=== PATIENT | female | born 1995 | race Caucasian/White ===

== ENCOUNTER → 2019-10-05 14:40 | Outpatient (BNVA) | payer OTHER, SELFPAY | PROVIDERS: Family Provider Internal Medicine; Visit Provider Nurse Practitioner Women's Health | DX: Z01.89 Encounter for other specified special examinations (principal) | CPT/HCPCS: 84315 ==

== ENCOUNTER → 2019-10-19 13:27 | Outpatient (BNVA) | payer OTHER, SELFPAY | PROVIDERS: Family Provider Internal Medicine; Visit Provider Obstetrics & Gynecology | DX: Z34.80 Encounter for supervision of other normal pregnancy, unspecified trimester (principal) | CPT/HCPCS: 80053; 80307; 84315; 85027; 86592; 86762; 86803; 86850; 86900; 87340; 87806 ==

== ENCOUNTER → 2019-11-01 12:50 | Outpatient (BNVA) | payer OTHER, SELFPAY | PROVIDERS: Family Provider Internal Medicine; Visit Provider Obstetrics & Gynecology | DX: O09.299 Supervision of pregnancy with other poor reproductive or obstetric history, unspecified trimester (principal); Z86.79 Personal history of other diseases of the circulatory system | CPT/HCPCS: 84315; 87491; 87591 ==

== ENCOUNTER 2019-11-17 10:31 | Outpatient (CLI) | payer OTHER, SELFPAY ==
[2019-11-17 11:47] LABS: Total Protein 24 Hour Urine 95.3 mg/24HR (0-150); Total Volume, Urine 1025 mL; Urine Total Protein 24 Hour 9.3 mg/dL (0-150)
== END 2019-11-17 10:32 | disposition home or self-care (01) ==
LOC: LAB 10:33
PROVIDERS: Family Provider Internal Medicine; Visit Provider Obstetrics & Gynecology
DX: O09.299 Supervision of pregnancy with other poor reproductive or obstetric history, unspecified trimester (principal)
CPT/HCPCS: 84156

== ENCOUNTER → 2019-12-26 08:04 | Outpatient (BNVA) | payer OTHER, SELFPAY | PROVIDERS: Family Provider Internal Medicine; Visit Provider Obstetrics & Gynecology | DX: Z36.89 Encounter for other specified antenatal screening (principal) | CPT/HCPCS: 76805 ==

== ENCOUNTER → 2020-01-21 08:09 | Outpatient (BNVA) | payer OTHER, SELFPAY | PROVIDERS: Family Provider Internal Medicine; Visit Provider Obstetrics & Gynecology | DX: Z34.90 Encounter for supervision of normal pregnancy, unspecified, unspecified trimester (principal); B37.3 Candidiasis of vulva and vagina | CPT/HCPCS: 84315; 87210 ==

== ENCOUNTER → 2020-02-20 10:35 | Outpatient (BNVA) | payer OTHER, SELFPAY | PROVIDERS: Family Provider Internal Medicine; Visit Provider Nurse Practitioner Women's Health | DX: O26.899 Other specified pregnancy related conditions, unspecified trimester (principal); O26.893 Other specified pregnancy related conditions, third trimester; Z34.82 Encounter for supervision of other normal pregnancy, second trimester | CPT/HCPCS: 82950; 84315; 85027 ==

== ENCOUNTER 2020-03-06 09:00 | Outpatient (CLI) | payer OTHER, SELFPAY ==
[2020-03-06 09:20] VITALS: BP 115/62; PULSE 86; RESP 16
[2020-03-06 09:31] VITALS: BMI 27.8
[2020-03-06 09:47] VITALS: RESP 16; TEMP 37.1
[2020-03-06 09:51] LABS: Nitrazine Paper, PH Negative
== END 2020-03-06 09:50 | disposition home or self-care (01) ==
LOC: OPOB 09:12 → OBGYN 09:45
PROVIDERS: Family Provider Internal Medicine; Visit Provider Obstetrics & Gynecology
DX: O26.899 Other specified pregnancy related conditions, unspecified trimester (principal); Z3A.00 Weeks of gestation of pregnancy not specified; N89.8 Other specified noninflammatory disorders of vagina
CPT/HCPCS: 59025; 83986; 99211

== ENCOUNTER → 2020-03-07 12:57 | Outpatient (BNVA) | payer OTHER, SELFPAY | PROVIDERS: Family Provider Internal Medicine; Visit Provider Obstetrics & Gynecology | DX: O23.13 Infections of bladder in pregnancy, third trimester (principal); R82.90 Unspecified abnormal findings in urine | CPT/HCPCS: 80053; 81000; 84315 ==

== ENCOUNTER → 2020-04-18 12:58 | Outpatient (BNVA) | payer OTHER, SELFPAY | PROVIDERS: Family Provider Internal Medicine; Visit Provider Obstetrics & Gynecology | DX: Z34.83 Encounter for supervision of other normal pregnancy, third trimester (principal) | CPT/HCPCS: 84315; 87081 ==

== ENCOUNTER 2020-05-04 07:38 | Inpatient (IN) | payer OTHER, SELFPAY ==
[2020-05-04] VITALS (88 sets, daily range): BP systolic 0–139; BP diastolic 0–85; PULSE 59–107; RESP 15–16; TEMP 36.6–37.1; O2SAT 98–100; BMI 29.7
[2020-05-04 08:51] LABS: Basophils % 0.3 %; Eosinophils % 0.3 %; Hematocrit 34.5 % (37.0-47.0); Hemoglobin 10.7 g/dL (11.5-15.3); Lymphocytes # 1.5 10^3/uL (0.8-4.8); Lymphocytes % 14.9 %; Mean Corpuscular Hemoglobin 25.1 pg (28.0-34.0); Mean Platelet Volume 9.3 fL (7.4-10.4); Monocytes # 0.6 10^3/uL (0.2-0.9); Monocytes % 6.1 %; Neutrophils # 7.95 10^3/uL (1.8-7.7); Nucleated Red Blood Cells % 0 %; Platelet Count 318 10^3/cmm (130-400); Red Blood Count 4.26 10^6/uL (4.1-5.3); Red Cell Distribution Width 14.1 % (12.1-15.1); White Blood Count 10.2 10^3/uL (4.0-10.0)
[2020-05-04] MEDS: lactated ringers 1,000 ML 999 ML IV ×3 (08:51→18:03)
[2020-05-04 10:01] LABS: SARS Covid-2 Antigen Negative (Negative)
--- NOTE | 2020-05-04 11:04 | P.ANESUD_ITS ---
Pre-Anesthetic Update Pre-Anesthetic Assessment: Date of Surgery/Procedure: 05/04/20 Preop Rosibel gnosis: IUP Any changes to Pre-Anesthetic Assessment?: No Last Intake: 0700 Labs Last 48hrs: Laboratory Results - last 48 hr 05/04/20 05/04/20 08:20 08:50 WBC 10.2 H RBC 4.26 Hgb 10.7 L Hct 34.5 L MCV 81.0 MCH 25.1 L MCHC 31.0 RDW 14.1 Plt Count 318 MPV 9.3 Neut % (Auto) 78.0 Lymph % (Auto) 14.9 [place] % (Auto) 6.1 Eos % (Auto) 0.3 Baso % (Auto) 0.3 Neut # (Auto) 7.95 H Lymph # (Auto) 1.5 [place] # (Auto) 0.6 Eos # (Auto) 0.0 Baso # (Auto) 0.0 Nucleated RBC % (a uto) 0 Nucleated RBCs # 0.0 SARS-CoV-2 Ag (Rap id) Negative Vitals: Pulse Rate 96 05/04/20 11:01 Pulse Rhythm 05/04/20 08:14 Pulse Strength 0+ Absent 05/04/20 08:14 Respiratory Effort Non-Labored 05/04/20 08:14 Respiratory Depth Normal 05/04/20 08:14 Respiratory Patter n 05/04/20 08:14 Blood Pressure 119/76 05/04/20 11:01 Blood Pressure Gisele n 88 05/04/20 11:01 Pulse Oximetry 100 05/04/20 10:58 Oxygen Delivery Me thod 05/04/20 08:14 Cardiac Studies: No Data to Display
--- NOTE | 2020-05-04 11:05 | P.ANES_ITS ---
Anesthesia Procedures Procedure/Date: 05/04/20 Epidural: Time Out Performed: Yes Consents Signed: Procedure Consent Consent: requested by attending/covering physician and from patient Lumbar Level: L3-L4 Epidural position: sitting Epidural procedure: sterile prep of area, 1% lidocaine to numb the area, 18 g needle, neg for paresthesia, test d ose given, 1.5% xylocaine 1:200k epi, 0.2% Ropivacaine bolus ml, placed PCEA, no systemic response, sterile dressing applied, L.U.D. no apparent complications and 0.2% Ropiavacaine @ mls/hr Additional Comments: ALEJANDRO at 6cm. Cath placed 2 cm into epid space with ease. Bolus 6cc Ropiv 2% and Fentanyl 100 mcg. Epid pump started at 13 cc/hour
[2020-05-04] MEDS: dextrose 5%-lactated ringers 1,000 ML 125 ML IV (12:01)
[2020-05-04] MEDS: ondansetron 2 mg/ML SDV 2 mL 4 MG IVP (14:24)
[2020-05-04] MEDS: oxytocin 30 UNIT/500 ML BAG 500 UNIT IV (14:27)
--- NOTE | 2020-05-04 15:43 | PM.DELIVERY ---
Delivery Note: Date of delivery: May 04, 2020 - PRE-DELIVERY DIAGNOSIS: 24-year-old 2 para 1-0-0-1 at 38 weeks and 6 days GBS negative Active labor Anemia on iron History of preeclampsia on aspirin GERD on medication POST-DELIVERY DIAGNOSIS: Vaginal delivery on 05/04/2020 Anemia PROCEDURE: Vaginal delivery on 05/04/2020 ANESTHESIA: Epidural anesthesia DELIVERING PHYSICIAN: Eleuterio Cisneros FACOG PRE-DELIVERY COURSE: Ms. New is a 24-year-old 2 para 1-0-0-1 at 38 weeks and 6 days who presented to labor and delivery with reports of contractions since about 3:30 AM that morning on 05/04/2020. She stated that they were every 3 to 5 minutes and were strong. She denied any other problems. On evaluation on labor and delivery she was noted to be 3 cm 70% and -3 station. She had a category 1 tracing and was mariella every 2-6 minutes. She was observed on labor and delivery for 2 hours and made some cervical change to 3 to 4 cm, 90% and -2 station and was admitted in labor. She received an epidural and was comfortable with this. Artificial rupture of membranes was performed at 12:30 PM with clear fluid and at that time she was noted to be 5 to 6 cm, 90% and -1 station. She made good cervical change and was fully dilated by 2:30 PM. tracing had been category 1 thus far. She started to have variable decelerations with contractions which resolved with position changes. She was +2 at this time and set up in lithotomy position ready to push. DELIVERY NOTE: She was set up in lithotomy position and was pushing effectively. She was noted to be +3 station and continued pushing well. The head delivered in BRUCE position, tight nuchal cord x1 was present and was unable to be reduced. The shoulders and rest of the body followed with her next push and delivered through the cord without any difficulty. The baby's mouth and nose were suctioned and the baby was placed on the mother's belly. Once cord pulsations stopped the cord was clamped and cut. She was noted to have a second-degree perineal tear at this time and there was an arterial pumper that was attempted to be clamped however it was hard to do so. Decision was made to repair the tear prior to delivery of the placenta given the active bleeding from the arterial vessel on the perineum. Second-degree perineal tear was repaired with 3-0 Vicryl in a continuous interlocking fashion and good hemostasis and reapproximation was obtained. At this time patient felt a little bit nauseous and lightheaded and blood pressure was noted to be 70s over 30s with a normal pulse. She felt better with IV fluid bolus and bring the head and blood pressure improved. The placenta delivered spontaneously intact with membranes and was discarded. The fundus was noted to be firm and well contracted. The vagina and cervix were inspected and no cervical or sulcal lacerations were noted. The perineum was intact except for the aforementioned second-degree tear that was repaired. Baby boy, Alfaro born at 3:01 PM on 05/04/2020 with 8/9, weighing 9 pounds 3 ounces, 4165 g, 20-1/2 inches long. Placenta was delivered spontaneously intact with membranes. Cotyledons were intact , centrally inserted umbilical cord with 3 vessels noted. Estimated blood loss 500 mL. Complications-none, both baby and mother were left to recovery in a stable condition Coding Level of Care Code Acute Installers Mechanical for Lneny Teresa
[2020-05-04 17:07] LABS: Basophils % 0.2 %; Eosinophils % 0.1 %; Hematocrit 29.5 % (37.0-47.0); Lymphocytes # 1.4 10^3/uL (0.8-4.8); Lymphocytes % 7.3 %; Mean Corpuscular HGB Conc 30.5 g/dL (30.0-36.0); Mean Corpuscular Hemoglobin 25.3 pg (28.0-34.0); Mean Corpuscular Volume 82.9 fL (81-99); Mean Platelet Volume 9.1 fL (7.4-10.4); Monocytes # 1.3 10^3/uL (0.2-0.9); Monocytes % 6.9 %; Neutrophils # 15.86 10^3/uL (1.8-7.7); Neutrophils % 85.1 %; Nucleated Red Blood Cells % 0 %; Platelet Count 268 10^3/cmm (130-400); Red Blood Count 3.56 10^6/uL (4.1-5.3); Red Cell Distribution Width 14.1 % (12.1-15.1); White Blood Count 18.6 10^3/uL (4.0-10.0)
--- NOTE | 2020-05-04 17:28 | PC.NURSE ---
1644 ATTEMPTED TO GET PATIENT UP TO BATHROOM, RIGHT LEG STILL ALITTLE NUMB FEELING. HAD PT SET ON SIDE OF THE BED FOR A FEW MINUTS BEFORE TRYING TO STAND, PT STOOD UP AND DID WELL BUT WHEN SHE TRIED TO MARCH IN PLACE HER RIGHT LEG DID NOT WANT TO WORK SO WE GOT HER RIGHT BACK INTO BED. THEN SHE FELT DIZZY AND LIGHT HEADED. HEAD OF BED PUT DOWN AND WE STRAIGHT CATH HER AND GOT 300 MLS AND THEN ICE PACK PLACED ON PERINEIM. DR. HUGHES CAME INTO ROOM AND WAS AWARE OF INCIDENT. ORDERS RECEIVED TO DO STAT H&H AND MAKE TO DO ACTIVE TYPE AND SCREEN. #18 JELCO STARTED IN LEFT AC SPACE AND LAB DRAWN. THIS [employer] JUST LEFT IV IN JUST IN CASE IT WAS NEEDED FOR LATER.
--- NOTE | 2020-05-04 19:39 | PC.NURSE ---
PT UP TO BATHROOM AND WAS INSTRUTED ON PERICARE AND DID GREAT, WALKED TO 204 AND DID VERY WEL, WENT OVER PP PACK WITH HER.
[2020-05-04] MEDS: ibuprofen 800 mg tablet PO (21:18)
[2020-05-05] VITALS (7 sets, daily range): BP systolic 104–122; BP diastolic 64–79; PULSE 74–125; RESP 15–16; TEMP 36.8–37.1; O2SAT 99
[2020-05-05] MEDS: acetaminophen 325 mg Tablet 650 MG PO (03:26)
[2020-05-05 03:47] LABS: Basophils % 0.1 %; Eosinophils % 0.1 %; Hematocrit 24.2 % (37.0-47.0); Hemoglobin 7.5 g/dL (11.5-15.3); Lymphocytes # 2.1 10^3/uL (0.8-4.8); Lymphocytes % 15.6 %; Mean Corpuscular Hemoglobin 25.2 pg (28.0-34.0); Mean Corpuscular Volume 81.2 fL (81-99); Mean Platelet Volume 9.1 fL (7.4-10.4); Monocytes # 1.1 10^3/uL (0.2-0.9); Monocytes % 8.4 %; Neutrophils # 10.04 10^3/uL (1.8-7.7); Neutrophils % 75.3 %; Nucleated Red Blood Cells % 0 %; Platelet Count 234 10^3/cmm (130-400); Red Blood Count 2.98 10^6/uL (4.1-5.3); Red Cell Distribution Width 14.2 % (12.1-15.1); White Blood Count 13.4 10^3/uL (4.0-10.0)
--- NOTE | 2020-05-05 08:21 | PM.PN ---
Vitals/I&O/Wt Last Vital Signs Temp 98.3 F 05/05/20 01:30 Pulse 80 05/05/20 05:15 Resp 16 05/05/20 05:15 BP 104/64 05/05/20 05:15 Pulse Ox 99 05/05/20 05:15 05/04/20 05/05/20 05/05/20 22:59 06:59 14:59 Output Total 1700 / 1700 700 / 2400 Balance -1700 / -700 -700 / -1400 Weight last 48 hrs Weight 168 lb Physical Exam Urinary Catheter Management^: Karimi: Cath Placed During This Visit: yes Urinary Catheter Date of Insertion: 05/04/20 Urinary Catheter Time of Insertion: 11:15 Data : 05/05/20 03:30 Coding Level of Care Code Acute Engineering Group Manager for Lenny Teresa
[2020-05-05] MEDS: prenatal vitamin Capsule 1 CAP PO (09:24)
[2020-05-05] MEDS: benzocaine-menthol 78 gm Canister 1 SPRAY TOPICAL (09:24)
[2020-05-05] MEDS: ibuprofen 800 mg tablet PO ×2 (09:24→15:05)
[2020-05-05] MEDS: lanolin oint 7 gm 1 APPLIC TOPICAL (09:24)
[2020-05-05] MEDS: docusate sodium 100 mg Capsule PO (09:25)
--- NOTE | 2020-05-05 16:12 | PM.DCS ---
Discharge Providers Date of Admission: 05/04/20 07:38 Date of Discharge: May 05, 2020 Attending Provider at Admission: Eleuterio Su MD Attending Provider at Discharge: Eleuterio Su MD Primary Care Provider: Nellie Arenas MD Reason for Visit Reason for Visit: Contractions Hospital Course Discharge Summary: PRE-DELIVERY DIAGNOSIS: 24-year-old 2 para 1-0-0-1 at 38 weeks and 6 days GBS negative Active labor Anemia on iron History of preeclampsia on aspirin GERD on medication POST-DELIVERY DIAGNOSIS: Vaginal delivery on 05/04/2020 Anemia PROCEDURE: Vaginal delivery on 05/04/2020 ANESTHESIA: Epidural anesthesia DELIVERING PHYSICIAN: Eleuterio Cisneros FACOG PRE-DELIVERY COURSE: Ms. New is a 24-year-old 2 para 1-0-0-1 at 38 weeks and 6 days who presented to labor and delivery with reports of contractions since about 3:30 AM that morning on 05/04/2020. She stated that they were every 3 to 5 minutes and were strong. She denied any other problems. On evaluation on labor and delivery she was noted to be 3 cm 70% and -3 station. She had a category 1 tracing and was mariella every 2-6 minutes. She was observed on labor and delivery for 2 hours and made some cervical change to 3 to 4 cm, 90% and -2 station and was admitted in labor. She received an epidural and was comfortable with this. Artificial rupture of membranes was performed at 12:30 PM with clear fluid and at that time she was noted to be 5 to 6 cm, 90% and -1 station. She made good cervical change and was fully dilated by 2:30 PM. tracing had been category 1 thus far. She started to have variable decelerations with contractions which resolved with position changes. She was +2 at this time and set up in lithotomy position ready to push. DELIVERY NOTE: She was set up in lithotomy position and was pushing effectively. She was noted to be +3 station and continued pushing well. The head delivered in BRUCE position, tight nuchal cord x1 was present and was unable to be reduced. The shoulders and rest of the body followed with her next push and delivered through the cord without any difficulty. The baby's mouth and nose were suctioned and the baby was placed on the mother's belly. Once cord pulsations stopped the cord was clamped and cut. She was noted to have a second-degree perineal tear at this time and there was an arterial pumper that was attempted to be clamped however it was hard to do so. Decision was made to repair the tear prior to delivery of the placenta given the active bleeding from the arterial vessel on the perineum. Second-degree perineal tear was repaired with 3-0 Vicryl in a continuous interlocking fashion and good hemostasis and reapproximation was obtained. At this time patient felt a little bit nauseous and lightheaded and blood pressure was noted to be 70s over 30s with a normal pulse. She felt better with IV fluid bolus and bring the head and blood pressure improved. The placenta delivered spontaneously intact with membranes and was discarded. The fundus was noted to be firm and well contracted. The vagina and cervix were inspected and no cervical or sulcal lacerations were noted. The perineum was intact except for the aforementioned second-degree tear that was repaired. Baby boy, Alfaro born at 3:01 PM on 05/04/2020 with 8/9, weighing 9 pounds 3 ounces, 4165 g, 20-1/2 inches long. Placenta was delivered spontaneously intact with membranes. Cotyledons were intact , centrally inserted umbilical cord with 3 vessels noted. Estimated blood loss 500 mL. Complications-none, both baby and mother were left to recovery in a stable condition HOSPITAL COURSE: She underwent an uncomplicated vaginal delivery on 05/04/2020. She did well on day 0 and was ambulating well, tolerating regular diet, voiding freely, passing flatus. On day 0 immediately after recovering from the epidural she had a little dizziness however this resolved with IV fluids and slow change in position. On day 0 she had no further dizziness or lightheadedness and denies shortness of breath chest pain, nausea, vomiting. She was breast-feeding without difficulty and bonding well with her son. Circumcision was performed on him on day of life 1 per her request. Pain was well-controlled with by mouth pain medication. She denied nausea, vomiting, fever, chills, shortness of breath, leg pain. She had minimal vaginal bleeding. On day # 1 she continued to do well with stable vital signs and stable hemoglobin at 7.5. Vital signs were overall stable and she was asymptomatic. We discussed possibly getting a blood transfusion however since she felt fine she declined the blood transfusion. I discussed trying to stated day #2 just to repeat blood counts and ensure that she is doing well. Towards the end of day #1 she said she was doing well and was asymptomatic and really wanted to be discharged home so she could go and be with her son.. She was discharged home on day 1 in a stable condition, as she desired early discharge. Warning signs for endometritis, mastitis, DVT/PE were reviewed with her. Post delivery activity restrictions were also reviewed with her at all her questions were answered to her satisfaction. Unsure about what she wants to use for contraception and will discuss this with Dr. Rosen at her 6-week visit EXAM AT DISCHARGE: Gen.: No acute distress Heart: S1-S2 heard, regular rate and rhythm Lungs: Clear to auscultation bilaterally Abdomen: Soft, fundus firm below umbilicus, Legs: No calf tenderness, trace bilateral pitting pedal edema. CONDITION AT DISCHARGE: Stable Physical Exam Urinary Catheter Management^: Karimi: Cath Placed During This Visit: yes Urinary Catheter Date of Insertion: 05/04/20 Urinary Catheter Time of Insertion: 11:15 Discharge Data Data Completed and Pending: Pending at discharge Category Date Time Status PTC COVID [Jon virus Lab Test PTC ] Stat Lab 05/04/20 08:50 Received Labs from last 24 hours 05/05/20 05/04/20 05/04/20 03:30 17:00 08:20 WBC 13.4 H 18.6 H RBC 2.98 L 3.56 L Hgb 7.5 L 9.0 L Hct 24.2 L 29.5 L MCV 81.2 82.9 MCH 25.2 L 25.3 L MCHC 31.0 30.5 RDW 14.2 14.1 Plt Count 234 268 MPV 9.1 9.1 Neut % (Auto) 75.3 85.1 Lymph % (Auto) 15.6 7.3 [place] % (Auto) 8.4 6.9 Eos % (Auto) 0.1 0.1 Baso % (Auto) 0.1 0.2 Neut # (Auto) 10.04 H 15.86 H Lymph # (Auto) 2.1 1.4 [place] # (Auto) 1.1 H 1.3 H Eos # (Auto) 0.0 0.0 Baso # (Auto) 0.0 0.0 Nucleated RBC % (a uto) 0 0 Nucleated RBCs # 0.0 0.0 Blood Type A Positive Rho(D) Type Positive Antibody Screen Negative Vitals: Last Vital Signs Temp 98.4 F 05/05/20 15:50 Pulse 94 05/05/20 15:50 Resp 16 05/05/20 15:50 BP 122/74 05/05/20 15:50 Pulse Ox 99 05/05/20 05:15 Discharge Plan Discharge Patient Disposition: Home Condition: Stable Prescriptions: New ibuprofen 800 mg tablet 800 mg PO Q8H Qty: 30 RF: 0 ferrous sulfate 325 mg (65 mg iron) tablet 325 mg PO BID Qty: 30 RF: 0 docusate sodium 100 mg Capsule 100 mg PO BID PRN (Reason: constipation) Qty: 30 RF: 0 Continued esomeprazole magnesium [Nexium] 20 mg capsule,delayed release(DR/EC) 40 mg PO DAILY RF: 0 Gummies 400 mcg-35 mg- 25 mg-5 mg tablet,chewable 2 tab PO DAILY RF: 0 Discontinued ferrous sulfate 325 mg (65 mg iron) tablet 325 mg PO DAILY RF: 0 aspirin 81 mg tablet,delayed release (DR/EC) 81 mg PO DAILY Qty: 90 RF: 2 Discharge Orders: Discharge Order (Routine); Ordered 05/05/20 Ordered By: Eleuterio Su Referrals: Gustavo Rosen MD [Physician] - 6 Weeks (Please call Dr. Rosen's office tomorrow to schedule an appointment in 6 weeks for mom's check up. ) Discharge Diet: Usual diet Patient Instructions: OB Discharge Report, OB Food/Drug Interaction Guide, OB Home Care Instructions, OB Care at Home, OB Home Care, OB Proud Parent Packet, OB Vaginal Deliveries - [facility] Activity Restrictions/Additional Instructions: Pelvic rest for 6 weeks, no heavy lifting for 6 weeks Discharge Date/Time: 05/05/20 16:30 Discharge Attestations Time Spent in Discharge Care*: greater than 30 min Quality Metrics Clinical Quality Measures During this hospital stay, did patient experience: None Coding Level of Care Code Acute Sour Bleaching Pleater for Lenny Teresa
[2020-05-05 21:50] LABS: Coronavirus Lab Test PTC Negative
== END 2020-05-05 16:30 | disposition home or self-care (01) | DRG 807 ==
LOC: OPOB 07:49 → OBGYN 07:49 → OPOB 15:26 → OBGYN 15:26
PROVIDERS: Admitting Provider Obstetrics & Gynecology; Family Provider Internal Medicine; PCP Internal Medicine; Visit Provider Obstetrics & Gynecology
DX: O69.81X0 Labor and delivery complicated by cord around neck, without compression, not applicable or unspecified (principal); Z37.0 Single live birth; O76 Abnormality in fetal heart rate and rhythm complicating labor and delivery; Z3A.38 38 weeks gestation of pregnancy; O70.1 Second degree perineal laceration during delivery; O99.284 Endocrine, nutritional and metabolic diseases complicating childbirth; K21.9 Gastro-esophageal reflux disease without esophagitis; O99.02 Anemia complicating childbirth; D64.9 Anemia, unspecified
CPT/HCPCS: 12345; 36415; 51702; 59025; 59409; 85025; 86850; 86900; 87426; 87635; 96374; 96375; 99211; J2405; J2795; J3010

== ENCOUNTER → 2020-06-09 11:28 | Outpatient (BNVA) | payer OTHER, SELFPAY | PROVIDERS: Family Provider Internal Medicine; PCP Internal Medicine; Visit Provider Obstetrics & Gynecology | DX: N89.8 Other specified noninflammatory disorders of vagina (principal) | CPT/HCPCS: 87210 ==

== ENCOUNTER → 2021-07-01 09:09 | Outpatient (BNVA) | payer OTHER, SELFPAY | PROVIDERS: Family Provider Internal Medicine; PCP Internal Medicine; Visit Provider Nurse Practitioner Women's Health | DX: O09.899 Supervision of other high risk pregnancies, unspecified trimester (principal); O09.299 Supervision of pregnancy with other poor reproductive or obstetric history, unspecified trimester; Z86.32 Personal history of gestational diabetes | CPT/HCPCS: 84315; 87086 ==

== ENCOUNTER → 2021-07-08 08:49 | Outpatient (BNVA) | payer OTHER, SELFPAY | PROVIDERS: Family Provider Internal Medicine; PCP Internal Medicine; Visit Provider Obstetrics & Gynecology | DX: O09.899 Supervision of other high risk pregnancies, unspecified trimester (principal) | CPT/HCPCS: 80307; 84315; 87086 ==

== ENCOUNTER → 2021-07-20 00:01 | Outpatient (BNVA) | payer OTHER, SELFPAY | PROVIDERS: Family Provider Internal Medicine; PCP Internal Medicine; Visit Provider Obstetrics & Gynecology | DX: O09.899 Supervision of other high risk pregnancies, unspecified trimester (principal) | CPT/HCPCS: 84156 ==

== ENCOUNTER → 2021-07-29 08:15 | Outpatient (BNVA) | payer OTHER, SELFPAY | PROVIDERS: Family Provider Internal Medicine; PCP Internal Medicine; Visit Provider Obstetrics & Gynecology | DX: O09.899 Supervision of other high risk pregnancies, unspecified trimester (principal); Z12.4 Encounter for screening for malignant neoplasm of cervix | CPT/HCPCS: 80053; 82570; 82950; 84156; 84315; 84550; 85027; 86592; 86762; 86803; 86850; 86900; 87340; 87491; 87591; 88175 ==

== ENCOUNTER → 2021-10-07 08:30 | Outpatient (BNVA) | payer OTHER, SELFPAY | PROVIDERS: Family Provider Internal Medicine; PCP Internal Medicine; Visit Provider Obstetrics & Gynecology | DX: R31.9 Hematuria, unspecified (principal) | CPT/HCPCS: 81000; 87086 ==

== ENCOUNTER → 2021-11-02 09:29 | Outpatient (BNVA) | payer OTHER, SELFPAY | PROVIDERS: Family Provider Internal Medicine; PCP Internal Medicine; Visit Provider Obstetrics & Gynecology | DX: O09.899 Supervision of other high risk pregnancies, unspecified trimester (principal) | CPT/HCPCS: 82950; 84315; 85027 ==

== ENCOUNTER 2021-11-10 23:25 | Observation (INO) | payer OTHER, SELFPAY ==
[2021-11-10 20:20] VITALS: RESP 15; BMI 28.0
[2021-11-10 20:37] VITALS: BP 121/75; PULSE 93
[2021-11-10 20:38] VITALS: TEMP 36.6
[2021-11-10 21:34] LABS: Bilirubin Urine Neg (Negative); Blood Urine Neg (Negative); Glucose Urine UA Norm (Normal); Ketones Urine 1+ (Negative); Leukocyte Esterase Urine Negative (Negative); Nitrate Urine Negative (Negative); Protein Urine Neg (Negative); RBC Urine 0-4 /hpf (0-2); Specific Gravity, Urine 1.005 (1.005-1.030); Urine Appearance Clear (CLEAR); Urine Color Yellow (Yellow); Urobilinogen Urine Norm (Negative); WBC Urine 0-4 /hpf (0-5); pH Urine 7 (5-7)
[2021-11-10 21:35] LABS: Add Urine Culture? No; Bacteria Urine 1+ /hpf; Mucus Urine TRACE /hpf
[2021-11-11] VITALS (10 sets, daily range): BP systolic 105–113; BP diastolic 64–72; PULSE 64–100; RESP 18; TEMP 36.1–36.7; O2SAT 100
[2021-11-11] MEDS: betamethasone susp 6 mg/mL 5 mL 12 MG IM (00:16)
[2021-11-11] MEDS: dextrose 5%-lactated ringers 1,000 ML 125 ML IV (00:17)
--- NOTE | 2021-11-11 09:26 | PM.OPHPUD ---
Labor & Delivery H&P Update Date of Procedure: November 10, 2021 Date H&P Performed: 11/02/21 H&P update information: I have reviewed H&P completed within last 30 days, I have examined patient prior to procedure and Changes to prior documentation as noted here Changes to previous documentation: The patient presents for uterine contractions. She was found to be having irregular contractions. she was given one dose of steroids and admitted for observation. Admission Diagnosis: Preop diagnosis: IUP
--- NOTE | 2021-11-11 09:31 | PM.PN ---
Subjective Subjective: The patient has been observed overnight. Her contractions have spaced. She feels well and only reports occasional painful contractions. Vitals/I&O/Wt Last Vital Signs Temp 96.9 F L 11/11/21 07:21 Pulse 100 11/11/21 08:38 Resp 18 11/11/21 07:21 BP 105/65 11/11/21 08:38 Weight last 48 hrs Weight 153 lb Physical Exam Const: COMMON NORMALS: no acute distress, average body habitus, patient oriented x3, no limitations, healthy appearing, alert and well nourished GENERAL APPEARANCE: cooperative, comfortable, well kempt and well developed ORIENTATION/CONSCIOUSNESS: Yes awake, Yes oriented to person, Yes oriented to place and Yes oriented to time Resp: COMMON NORMALS: normal respiratory effort EFFORT & INSPECTION: Yes able to speak in complete sentences GI: COMMON NORMALS: Soft to palpation and non-tender PALPATION: Yes Soft to palpation : MANUAL OB EXAM: Not dilated nor effaced (external os open slightly), dilated and station high Extremity: COMMON NORMALS: no calf tenderness Neuro: COMMON NORMALS: patient oriented x3 SENSORIUM/ORIENTATION: Yes alert, Yes oriented to person, Yes oriented to place and Yes oriented to time Psych: APPEARANCE: Yes well kempt A&P Assessment and plan (1) contractions: The patient received a dose of betamethasone late last night. She will return tomorrow morning for her second dose strict labor precautions. Discharged home in stable condition Status: Acute Attestations Medical Necessity Statement*: The patient was admitted for observation overnight. Coding Level of Care Code Acute Facilities Maintenance Worker for Lenny Teresa Diagnoses contractions O47.00
--- NOTE | 2021-11-11 09:41 | PM.DCS ---
Discharge Providers Date of Admission: 11/10/21 23:25 Date of Discharge: November 11, 2021 Attending Provider at Admission: Fior Alfonso MD Attending Provider at Discharge: Fior Alfonso MD Primary Care Provider: Nellie Arenas MD Diagnoses at Discharge Discharge Diagnosis (1) contractions: Status: Acute Reason for Visit Reason for Visit: contractions Hospital Course Hospital Course The patient was admitted for contractions. She was given her first dose of betamethasone and PO hydration. The contractions began to space and the patient was able to rest. She reported that she would still have occasional painful contractions, but not very often. She will return tomorrow for her second dose of betamethasone. We also discussed strict labor precautions. Discharge Data Studies Completed and Pending Laboratory Results Urine Color Yellow (Yellow) 11/10/21 21:02 Urine Appearance Clear (CLEAR) 11/10/21 21:02 Urine pH 7 (5-7) 11/10/21 21:02 Ur Specific [place] 1.005 (1.005-1.030) 11/10/21 21:02 Urine Protein Neg (Negative) 11/10/21 21:02 Urine Glucose (UA) Norm (Normal) 11/10/21 21:02 Urine Ketones 1+ (Negative) H 11/10/21 21:02 Urine Blood Neg (Negative) 11/10/21 21:02 Urine Nitrate Negative (Negative) 11/10/21 21:02 Urine Bilirubin Neg (Negative) 11/10/21 21:02 Urine Urobilinogen Norm mg/dL (Negative) 11/10/21 21:02 Ur Leukocyte Esterase Negative (Negative) 11/10/21 21:02 Urine RBC 0-4 /hpf (0-2) H 11/10/21 21:02 Urine WBC 0-4 /hpf (0-5) H 11/10/21 21:02 Ur Squamous Epith Cells 5-10 /hpf (0-5) H 11/10/21 21:02 Amorphous Sediment Not Reportable 11/10/21 21:02 Urine Bacteria 1+ /hpf (NONE) H 11/10/21 21:02 Urine Mucus Trace /hpf 11/10/21 21:02 Vitals Last Vital Signs Temp 96.9 F L 11/11/21 07:21 Pulse 100 11/11/21 08:38 Resp 18 11/11/21 07:21 BP 105/65 11/11/21 08:38 Discharge Plan Discharge Patient Disposition: Home Condition: Stable Prescriptions: Continued aspirin 81 mg tablet,chewable 81 mg PO DAILY Qty: 90 2RF Rx Instructions: Start at 12 weeks Gummies 400 mcg-35 mg- 25 mg-5 mg tablet,chewable PO 0RF Discharge Orders: Discharge Order (Routine); Ordered 11/11/21 Ordered By: Fior Alfonso Patient Instructions: Opioid Safety, OB Undelivered Discharge Discharge Attestations Time Spent in Discharge Care*: less than 30 min Quality Metrics Clinical Quality Measures [ No reported AMI, CVA or VTE this stay] Coding Level of Care Code Acute Chg FW DC note Diagnoses contractions O47.00
== END 2021-11-11 10:15 | disposition home or self-care (01) ==
PROVIDERS: Admitting Provider Obstetrics & Gynecology; Family Provider Internal Medicine; PCP Internal Medicine; Visit Provider Obstetrics & Gynecology
DX: O47.00 False labor before 37 completed weeks of gestation, unspecified trimester (principal); Z3A.28 28 weeks gestation of pregnancy; Z79.82 Long term (current) use of aspirin
CPT/HCPCS: 59025; 81001; 96372; 99211; G0378; J0702

== ENCOUNTER 2021-11-12 08:58 | Outpatient (CLI) | payer OTHER, SELFPAY ==
[2021-11-12 09:00] VITALS: BMI 26.5
[2021-11-12] MEDS: betamethasone susp 6 mg/mL 5 mL 12 MG IM (09:21)
== END 2021-11-12 09:22 | disposition home or self-care (01) ==
LOC: OPOB 09:06
PROVIDERS: Family Provider Internal Medicine; PCP Internal Medicine; Visit Provider Obstetrics & Gynecology
DX: O26.899 Other specified pregnancy related conditions, unspecified trimester (principal); Z3A.00 Weeks of gestation of pregnancy not specified
CPT/HCPCS: 96372; 99211; J0702

== ENCOUNTER → 2021-11-25 09:48 | Outpatient (BNVA) | payer OTHER, SELFPAY | PROVIDERS: Family Provider Internal Medicine; PCP Internal Medicine; Visit Provider Obstetrics & Gynecology | DX: O09.899 Supervision of other high risk pregnancies, unspecified trimester (principal) | CPT/HCPCS: 76816; 84315 ==

== ENCOUNTER 2021-11-26 15:21 | Outpatient (CLI) | payer OTHER, SELFPAY ==
[2021-11-26 15:22] VITALS: BMI 28.1
[2021-11-26 15:43] VITALS: BP 134/66; PULSE 101; TEMP 36.6
[2021-11-26] MEDS: NIFEdipine ER (24 hr) 30 mg Tablet PO (16:20)
[2021-11-26 17:55] VITALS: BP 126/75; PULSE 98; RESP 16
== END 2021-11-26 19:10 | disposition home or self-care (01) ==
LOC: OBGYN 19:20 → OPOB 19:22
PROVIDERS: Family Provider Internal Medicine; PCP Internal Medicine; Visit Provider Obstetrics & Gynecology
DX: O26.899 Other specified pregnancy related conditions, unspecified trimester (principal); Z3A.00 Weeks of gestation of pregnancy not specified; R10.9 Unspecified abdominal pain
CPT/HCPCS: 59025; 99211

== ENCOUNTER → 2021-12-23 10:30 | Outpatient (BNVA) | payer OTHER, SELFPAY | PROVIDERS: Family Provider Internal Medicine; PCP Internal Medicine; Visit Provider Obstetrics & Gynecology | DX: O09.899 Supervision of other high risk pregnancies, unspecified trimester (principal); O09.299 Supervision of pregnancy with other poor reproductive or obstetric history, unspecified trimester; Z87.59 Personal history of other complications of pregnancy, childbirth and the puerperium; Z3A.00 Weeks of gestation of pregnancy not specified | CPT/HCPCS: 84315; 87081 ==

== ENCOUNTER 2022-01-04 07:57 | Observation (INO) | payer OTHER, SELFPAY ==
[2022-01-03 23:40] VITALS: BP 126/75; PULSE 77; TEMP 36
[2022-01-03 23:42] VITALS: BP 126/75; PULSE 77; TEMP 36
[2022-01-03 23:57] VITALS: BP 113/68; PULSE 77
[2022-01-04] VITALS (22 sets, daily range): BP systolic 110–144; BP diastolic 56–85; PULSE 54–85; TEMP 36.1; BMI 28.3
[2022-01-04 00:21] LABS: Add Urine Microscopic? YES; Bilirubin Urine Neg (Negative); Blood Urine Neg (Negative); Glucose Urine UA Norm (Normal); Ketones Urine Negative (Negative); Leukocyte Esterase Urine 2+ (Negative); Nitrate Urine Negative (Negative); Protein Urine Neg (Negative); Urine Appearance Hazy (CLEAR); Urine Color Yellow (Yellow); Urobilinogen Urine Norm (Negative); pH Urine 6 (5-7)
[2022-01-04 00:22] LABS: Add Urine Culture? No; Bacteria Urine 2+ /hpf; Calcium Oxalate Crystals Urine 40-55 /hpf; RBC Urine 0-4 /hpf (0-2); Squamous Epithelial Cell Urine 40-55 /hpf (0-5); WBC Urine 40-55 /hpf (0-5)
[2022-01-04 01:31] LABS: Bilirubin Urine Neg (Negative); Blood Urine 2+ (Negative); Glucose Urine UA Norm (Normal); Ketones Urine Negative (Negative); Leukocyte Esterase Urine 2+ (Negative); Nitrate Urine Negative (Negative); Protein Urine Neg (Negative); Urine Appearance SL Hazy (CLEAR); Urine Color Yellow (Yellow); Urobilinogen Urine Norm (Negative); pH Urine 5 (5-7)
[2022-01-04 01:32] LABS: Add Urine Culture? No; Amorphous Sediment Urine TRACE /hpf; Bacteria Urine TRACE /hpf; RBC Urine 0-4 /hpf (0-2)
[2022-01-04] MEDS: sodium chloride 0.9% 1,000 ML 999 ML IV (02:14)
[2022-01-04] MEDS: hyDROXYzine 25 mg Capsule 50 MG PO (02:15)
[2022-01-04] MEDS: cefTRIAXone 2,000 MG in sodium chloride 0.9% (plus) 50 ML 100 MG IV (02:15)
--- NOTE | 2022-01-04 09:11 | PM.OPHPUD ---
Labor & Delivery H&P Update Date of Procedure: January 04, 2022 Date H&P Performed: 01/04/22 H&P update information: I have reviewed H&P completed within last 30 days, I have examined patient prior to procedure and Changes to prior documentation as noted here Changes to previous documentation: The patient presented to labor and delivery with complaints of contractions. She was having contractions every 2-4 minutes. She made no cervical change initially, and she was admitted for observation. She had cervical change on the next check and was admitted for labor. Admission Diagnosis: Preop diagnosis: IUP Related Problem List Diagnoses (1) History of macrosomia in in prior , currently : (2) History of gestational hypertension: (3) Supervision of other high-risk :
--- NOTE | 2022-01-04 11:00 | PM.DCS ---
Discharge Providers Date of Admission: 01/04/22 07:57 Date of Discharge: January 04, 2022 Attending Provider at Admission: Fior Alfonso MD Attending Provider at Discharge: Fior Alfonso MD Primary Care Provider: Nellie Arenas MD Diagnoses at Discharge Discharge Diagnosis (1) History of macrosomia in in prior , currently : Status: Acute (2) History of gestational hypertension: Status: Acute (3) Supervision of other high-risk : Status: Acute Reason for Visit Reason for Visit: Contractions Hospital Course Hospital Course The patient was admitted for observation for frequent contractions at term. She had mild cervical change and is a . She went from 1 cm to 2 cm. She received IV fluids overnight and her contractions stopped. She has had no further cervical change. She was discharged home in stable condition. She was given labor precautions. Physical Exam Const: COMMON NORMALS: no acute distress, average body habitus, patient oriented x3, no limitations, healthy appearing, alert and well nourished GENERAL APPEARANCE: cooperative, comfortable, well kempt and well developed ORIENTATION/CONSCIOUSNESS: Yes awake, Yes oriented to person, Yes oriented to place and Yes oriented to time Resp: COMMON NORMALS: normal respiratory effort EFFORT & INSPECTION: Yes able to speak in complete sentences Neuro: COMMON NORMALS: patient oriented x3 SENSORIUM/ORIENTATION: Yes alert, Yes oriented to person, Yes oriented to place and Yes oriented to time Psych: COMMON NORMALS: mental status grossly normal, Normal thought process present, cooperative, normal affect and speech normal APPEARANCE: Yes well kempt SPEECH: Yes normal speech THOUGHT PROCESS: Normal thought process present Discharge Data Studies Completed and Pending Laboratory Results Urine Color Cancelled 01/04/22 01:05 Urine Color Yellow (Yellow) 01/04/22 01:05 Urine Appearance Cancelled 01/04/22 01:05 Urine Appearance Sl hazy (CLEAR) 01/04/22 01:05 Urine pH 5 (5-7) 01/04/22 01:05 Urine pH Cancelled 01/04/22 01:05 Ur Specific [place] 1.030 (1.005-1.030) 01/04/22 01:05 Ur Specific [place] Cancelled 01/04/22 01:05 Urine Protein Cancelled 01/04/22 01:05 Urine Protein Neg (Negative) 01/04/22 01:05 Urine Glucose (UA) Cancelled 01/04/22 01:05 Urine Glucose (UA) Norm (Normal) 01/04/22 01:05 Urine Ketones Cancelled 01/04/22 01:05 Urine Ketones Negative (Negative) 01/04/22 01:05 Urine Blood 2+ (Negative) H 01/04/22 01:05 Urine Blood Cancelled 01/04/22 01:05 Urine Nitrate Cancelled 01/04/22 01:05 Urine Nitrate Negative (Negative) 01/04/22 01:05 Urine Bilirubin Cancelled 01/04/22 01:05 Urine Bilirubin Neg (Negative) 01/04/22 01:05 Prot Sulfosalicylic Acd Cancelled 01/04/22 01:05 Urine Urobilinogen Cancelled 01/04/22 01:05 Urine Urobilinogen Norm mg/dL (Negative) 01/04/22 01:05 Ur Leukocyte Esterase 2+ (Negative) H 01/04/22 01:05 Ur Leukocyte Esterase Cancelled 01/04/22 01:05 Urine RBC 0-4 /hpf (0-2) H 01/04/22 01:05 Urine WBC 5-10 /hpf (0-5) H 01/04/22 01:05 Ur Squamous Epith Cells 5-10 /hpf (0-5) H 01/04/22 01:05 Calcium Oxalate Crystal 40-55 /hpf H 01/03/22 23:45 Amorphous Sediment Trace /hpf 01/04/22 01:05 Urine Bacteria Trace /hpf (NONE) 01/04/22 01:05 Vitals Last Vital Signs Temp 97.0 F L 01/04/22 08:09 Pulse 80 01/04/22 10:42 BP 110/70 01/04/22 10:42 Discharge Plan Discharge Patient Disposition: Home Prescriptions: Continued aspirin [Adult Low Dose Aspirin] 81 mg tablet,delayed release (DR/EC) 81 mg PO DAILY 0RF ferrous sulfate 325 mg (65 mg iron) tablet,delayed release (DR/EC) 325 mg PO DAILY 0RF Discharge Orders: Discharge Order (Routine); Ordered 01/04/22 Ordered By: Fior Alfonso Patient Instructions: Cephalexin (By mouth), Urinary Tract Infection in Women (DC), Early Labor Signs (GEN), Opioid Safety, OB Undelivered Discharge Activity Restrictions/Additional Instructions: Rest. Increase fluid intake. Follow up with Dr Cisneros this week. Take Cephalexin 500mg three times a day for 7 days. Discharge Attestations Time Spent in Discharge Care*: less than 30 min Quality Metrics Clinical Quality Measures [ No reported AMI, CVA or VTE this stay] Coding Level of Care Code Acute Chg FW DC note Diagnoses History of macrosomia in infant in prior , currently O09.299 History of gestational hypertension Z87.59 Supervision of other high-risk O09.899
== END 2022-01-04 10:42 | disposition home or self-care (01) ==
LOC: OPOB 07:57 → OBGYN 07:57
PROVIDERS: Admitting Provider Obstetrics & Gynecology; Family Provider Internal Medicine; PCP Internal Medicine; Visit Provider Obstetrics & Gynecology
DX: O47.1 False labor at or after 37 completed weeks of gestation (principal); Z87.59 Personal history of other complications of pregnancy, childbirth and the puerperium; Z3A.00 Weeks of gestation of pregnancy not specified; N39.0 Urinary tract infection, site not specified
CPT/HCPCS: 51702; 59025; 81001; 99211; G0378; J0696; J7030

== ENCOUNTER 2022-01-14 19:34 | Inpatient (IN) | payer OTHER, SELFPAY ==
[2022-01-14] VITALS (15 sets, daily range): BP systolic 107–137; BP diastolic 61–75; PULSE 72–106; RESP 16; BMI 27.9
[2022-01-14 20:04] LABS: Basophils % 0.2 %; Eosinophils % 0.4 %; Hematocrit 34.2 % (37.0-47.0); Hemoglobin 11.3 g/dL (11.5-15.3); Lymphocytes # 1.9 10^3/uL (0.8-4.8); Lymphocytes % 19.2 %; Mean Corpuscular Hemoglobin 26.6 pg (28.0-34.0); Mean Corpuscular Volume 80.5 fl (81-99); Mean Platelet Volume 9.3 fL (7.4-10.4); Monocytes # 0.9 10^3/uL (0.2-0.9); Monocytes % 9.2 %; Neutrophils # 6.84 10^3/uL (1.8-7.7); Neutrophils % 70.5 %; Nucleated Red Blood Cells % 0 %; Platelet Count 289 10^3/cmm (130-400); Red Blood Count 4.25 10^6/uL (4.1-5.3); Red Cell Distribution Width 15.8 % (12.1-15.1); White Blood Count 9.7 10^3/uL (4.0-10.0)
[2022-01-14] MEDS: lactated ringers 1,000 ML 999 ML IV (20:05)
[2022-01-14] MEDS: oxytocin 30 UNIT/500 ML BAG IV (21:33)
--- NOTE | 2022-01-14 21:38 | PM.OPHPUD ---
Labor & Delivery H&P Update Date of Procedure: January 14, 2022 Date H&P Performed: 01/13/22 H&P update information: I have reviewed H&P completed within last 30 days, I have examined patient prior to procedure, No changes to prior documentation and [place] [facility] [place] date indicated Admission Diagnosis: Preop diagnosis: IUP
[2022-01-15] VITALS (109 sets, daily range): BP systolic 93–154; BP diastolic 57–92; PULSE 57–105; RESP 16–22; TEMP 36.5–41.4; O2SAT 90–100
[2022-01-15] MEDS: dextrose 5%-lactated ringers 1,000 ML 125 ML IV ×2 (00:46→07:49)
[2022-01-15] MEDS: lactated ringers 1,000 ML 999 ML IV ×2 (06:43→18:50)
--- NOTE | 2022-01-15 07:58 | ANES.PREANE2 ---
Pre-Anesthetic Assessment Height/Weight: Height 1.65 m Weight 76.204 kg Pulse Resp BP Pulse Ox 86 16 118/74 100 01/15/22 07:56 01/15/22 07:42 01/15/22 07:56 01/15/22 07:39 Preop Diagnosis: IUP Familial anesthetic complications: None Was Beta Mohamud taken within 24 hours: N/A Was Clonidine taken within 24 hours: N/A Social No alcohol and No tobacco Exam alert, oriented x 3, clear to auscultation bilaterally and regular rate & rhythm Airway Submandibular: within normal limits Cervical ROM: within normal limits Mallampati: Class II Dentition: full CV/HEM Anemia Anesthetic Plan ASA status: 2 Anesthesia: Regional (specify below) (Labor epidural) Medications/Allergies Home Medications Medication Instructions Recorded Confirmed Last Taken Type ferrous sulfate 325 mg (65 mg 325 mg PO DAILY 11/16/21 01/14/22 01/13/22 22:30 History iron) tablet,delayed release aspirin 81 mg tablet,delayed 81 mg PO DAILY 12/23/21 01/14/22 01/12/22 History release (Adult Low Dose Aspirin) Allergies Allergy/AdvReac Type Severity Reaction Status Date / Time No Known Allergies Allergy Verified 01/14/22 19:42 Current Medications Generic Name Dose Route Start Last Admin Trade Name Freq PRN Reason Stop Dose Admin Lactated Ringer's 1,000 mls @ 999 mls/hr 01/14/22 19:32 01/15/22 00:46 Lactated Ringers IV Infused .Q1H1M PRN Infusion Per L&D Rescitation Protocol Dextrose/Lactated Ringer's 1,000 mls @ 125 mls/hr 01/14/22 19:45 01/15/22 07:49 Dextrose 5%-Lactated Ringers IV 125 mls/hr .Q8H ERIKA Administration Oxytocin 30 unit in 500 mls @ 1 mls/hr 01/14/22 20:45 01/15/22 05:30 Pitocin IV 12 milliunit/min .Q24H ERIKA 12 mls/hr Titration Protocol 1 MILLIUNIT/MIN Ropivacaine 200 mg in 100 mls @ 13 mls/hr 01/15/22 06:30 01/15/22 07:43 Naropin Premix EPIDURAL 13 mls/hr .Q7H42M ERIKA Administration Lactated Ringer's 1,000 mls @ 999 mls/hr 01/15/22 06:22 01/15/22 06:43 Lactated Ringers IV 999 mls/hr .Q1H1M PRN Administration See label comments PFSH Anesthesia Medical History No pertinent past medical history Denies diabetes, asthma, hypertension, seizures, DVT/PE PCP: Dr. Arenas Surgical History H/O reconstruction of anterior cruciate ligament tear (~2012) left knee---open procedure Family History Family/Other Diabetes maternal uncle Breast cancer Maternal aunt, diagnosed at age 20, age 21. Colon cancer Maternal aunt, diagnosed at age 20 Thyroid disease Cousin Heart disease paternal uncles Grandmother Diabetes maternal Hypertension Maternal Grandfather Heart disease Paternal grandfather Denies family history of Ovarian cancer Hyperlipidemia Uterine cancer Stroke Female Reproductive History : 3 Data Anesthesia : 01/14/22 19:40 Short CBC 01/14/22 Range/Units 19:40 WBC 9.7 (4.0-10.0) 10^3/uL Hgb 11.3 L (11.5-15.3) g/dL Hct 34.2 L (37.0-47.0) % MCV 80.5 L (81-99) fl Plt Count 289 (130-400) 10^3/cmm Neut % (Auto) 70.5 % Neut # (Auto) 6.84 (1.8-7.7) 10^3/uL Cardiac Studies: No Data to Display Anesthesia Procedures Epidural Time Out Performed: Yes Consents Signed: Procedure Consent Consent: requested by attending/covering physician, from patient, risks and benefits reviewed and patient agrees to proceed Lumbar Level: L4-L5 Epidural position: sitting Epidural procedure: sterile prep of area, 1% lidocaine to numb the area, 18 g needle, neg for paresthesia, test dose given, 1.5% xylocaine 1:200k epi, placed PCEA, no systemic response, sterile dressing applied and 0.2% Ropiavacaine @ mls/hr (13) Additional Comments: ALEJANDRO at 4cm, cath at 9cm, bolused 5mls of 2% lido
[2022-01-15] MEDS: miSOPROStol 200 mcg Tablet 400 MCG PR (09:05)
--- NOTE | 2022-01-15 09:37 | P.PCNOB_ITS ---
Delivery Note: Date of delivery: January 15, 2022 - PRE-DELIVERY DIAGNOSIS: 26-year-old 3 para 2-0-0-2 at 39 weeks and 0 days GBS negative Elective induction of labor History of gestational hypertension History of macrosomia POST-DELIVERY DIAGNOSIS: Vaginal delivery on 01/15/2022 PROCEDURE: Vaginal delivery on 01/15/2022 ANESTHESIA: Epidural anesthesia DELIVERING PHYSICIAN: Eleuterio Cisneros FACOG PRE-DELIVERY COURSE: Ms. New is a 26-year-old 3 para 2-0-0-2 at 39 weeks and 0 days who was admitted to labor and delivery at 7 PM on 01/14/2022 for elective induction of labor. Her history was significant for gestational hypertension and previous baby with macrosomia. She is GBS negative. Initial exam was 2 cm 50% and -3 station. tracing was category 1 and she was mariella every 4 to 6 minutes. After fluid bolus she continued to contract and decision was made to start induction with Pitocin. She was started on Pitocin at 9:30 PM and low- dose Pitocin up to 6 units was continued up until 4 AM at which point Pitocin was increased to a maximum of 12. With this she started to have regular contractions and was uncomfortable. At 6:24 a.m. artificial rupture of membranes was performed with clear fluid at which point she was 4 cm 70% and -2 station. She was uncomfortable after this and an epidural was placed. After the epidural she was 7 cm and made rapid cervical change after this and was fully dilated at 8:36 AM and ready to push. tracing thus far was category 1. DELIVERY NOTE: She was set up in lithotomy position and was pushing effectively. She was noted to be +3 station and continued pushing well. The head delivered in BRUCE position, no nuchal cord was present. The shoulders and rest of the body followed with her next push. The baby's mouth and nose were suctioned and the baby was placed on the mother's belly. Once cord pulsations stopped the cord was clamped and cut. The placenta delivered spontaneously intact with membranes and was discarded. The fundus was noted to be firm and well contracted however the lower uterine segment was boggy and Collecting blood clots-400 mcg of Cytotec was placed and uterine massage continued and the tone improved The vagina and cervix were inspected and no cervical or sulcal lacerations were noted. The perineum was intact except for a second-degree perineal tear which was repaired with 3-0 Vicryl in a continuous interlocking fashion. Good hemostasis and reapproximation was obtained. Baby girl Cassandra Malin born at 8:49 AM on 01/[birth year]/2022 with 9/10, weighing 7 pounds 8 ounces, 3405 g, 19-1/4 inches long. Placenta was delivered spontaneously intact with membranes at 8:54 AM cotyledons were intact , centrally inserted umbilical cord with 3 vessels noted. Estimated blood loss 300 mL. Complications-none, both baby and mother were left to recover in a stable condition. This documentation was created by [employer] corn breeder software (known for inherent corn breeder error). Every effort was made to assure accuracy of corn breeder. Any obvious errors or omissions should be clarified with the author of the document. History History History 3 Term 3 Miscarriages/Ectopic 0 0 Living Children 3 Other History: 3, para 3003 x 3 1 ---> 06/15/2017. Male(Ki), 7 lbs 12 oz, 38 weeks. Epidural. Vaginal delivery. Delivered by Dr. Jones in [place], [place]. complicated by gestational hypertension. 2 ---> 05/04/2020. Male (Tammy), 9 lbs 3 oz, 38-6/7 weeks. Epidural. Vaginal delivery. [place] [facility]. second- degree perineal and had a lot of bleeding with this and was anemic but no transfusion was needed. Gestational hypertension in this 3--> 01/15/2022, female(Cassandra Malin), 7 pounds 8 ounces, epidural, vaginal delivery [place]neros [place] [facility] Second-degree tear. No complications Coding Level of Care Code Acute Integration Engineer for Chg Brii
[2022-01-15] MEDS: benzocaine-menthol 78 gm Canister 1 SPRAY TOPICAL (13:08)
[2022-01-15] MEDS: lanolin oint 7 gm 1 APPLIC TOPICAL (13:09)
--- NOTE | 2022-01-15 13:34 | ANE.PACU2 ---
Inpatient post-anesthesia follow up: Airway intact: Yes Vital signs: Temperature 98.4 F Pulse Rate 91 Respiratory Rate 16 Blood Pressure 129/66 Pulse Oximetry 100 Oxygen Delivery Me thod Room Air Oxygen Flow Rate Fraction of Inspir ed Oxygen Hydration adequate: Yes Nausea and vomiting: No Pain level: 2 Mental status: Baseline
[2022-01-15] MEDS: ibuprofen 800 mg tablet PO ×2 (15:44→20:53)
[2022-01-15] MEDS: carboprost tromethamine 250 mcg/mL Amp IM (18:39)
[2022-01-15] MEDS: HYDROcodone-acetaminophen 5-325 mg Tablet PO (18:50)
[2022-01-15] MEDS: miSOPROStol 200 mcg Tablet PO (18:51)
[2022-01-15 18:52] LABS: Basophils % 0.3 %; Eosinophils % 0.3 %; Hematocrit 30.4 % (37.0-47.0); Hemoglobin 9.9 g/dL (11.5-15.3); Lymphocytes # 1.6 10^3/uL (0.8-4.8); Lymphocytes % 14.9 %; Mean Corpuscular HGB Conc 32.6 g/dL (30.0-36.0); Mean Corpuscular Volume 82.8 fl (81-99); Monocytes # 0.9 10^3/uL (0.2-0.9); Monocytes % 8.5 %; Neutrophils # 8.37 10^3/uL (1.8-7.7); Neutrophils % 75.7 %; Nucleated Red Blood Cells % 0 %; Platelet Count 231 10^3/cmm (130-400); Red Blood Count 3.67 10^6/uL (4.1-5.3); Red Cell Distribution Width 15.8 % (12.1-15.1)
[2022-01-15] MEDS: oxytocin 10 unit/mL SDV 1 mL 20 UNIT IV (18:56)
[2022-01-15] MEDS: ondansetron 2 mg/ML SDV 2 mL 4 MG IVP (19:10)
--- NOTE | 2022-01-15 19:28 | PC.NURSE ---
PT NOTE Patient pressed call light and designer writer to room. Patient in bathroom on toilet, patient reports cramping and designer writer observed blood in toilet and a clot on panties. Patient then loses several more clots in to toilet. Application Engineer assisted patient back to bed. Uterus observed to be firm, -2, and patient had small bleeding. Patient then states that she is feeling more and more cramping and designer writer performs fundal massage again and patient uterus remains firm, -2, and bleeding is heavy with a baseball size clot. Application Engineer out of room to call Dr. Cisneros at [phone], orders received see orders
[2022-01-15] MEDS: fentaNYL 50 mcg/mL INJ 2mL IVP (19:54)
[2022-01-16] VITALS (9 sets, daily range): BP systolic 108–156; BP diastolic 55–73; PULSE 71–101; RESP 16; TEMP 36.5–36.8
[2022-01-16] MEDS: miSOPROStol 200 mcg Tablet PO ×2 (01:01→06:03)
[2022-01-16 04:16] LABS: Basophils % 0.1 %; Eosinophils % 0.2 %; Hemoglobin 9.2 g/dL (11.5-15.3); Lymphocytes % 14.3 %; Mean Corpuscular HGB Conc 32.9 g/dL (30.0-36.0); Mean Corpuscular Hemoglobin 26.7 pg (28.0-34.0); Mean Corpuscular Volume 81.2 fl (81-99); Mean Platelet Volume 9.3 fL (7.4-10.4); Monocytes # 0.9 10^3/uL (0.2-0.9); Monocytes % 6.6 %; Neutrophils # 10.98 10^3/uL (1.8-7.7); Neutrophils % 78.3 %; Nucleated Red Blood Cells % 0 %; Platelet Count 224 10^3/cmm (130-400); Red Blood Count 3.45 10^6/uL (4.1-5.3); Red Cell Distribution Width 15.9 % (12.1-15.1)
[2022-01-16] MEDS: prenatal vitamin Capsule 1 CAP PO (08:42)
[2022-01-16] MEDS: ibuprofen 800 mg tablet PO (08:42)
[2022-01-16] MEDS: docusate sodium 100 mg Capsule PO (08:42)
--- NOTE | 2022-01-16 11:48 | P.DS_ITS ---
Discharge Providers Date of Admission: 01/15/22 06:02 Date of Discharge: January 16, 2022 Attending Provider at Admission: Eleuterio Su MD Attending Provider at Discharge: Eleuterio Su MD Primary Care Provider: Nellie Arenas MD Reason for Visit Reason for Visit: Induction Hospital Course Hospital Course The patient was admitted for induction at term. She had spontaneous delivery of a term . She did well and was ready for discharge. Physical Exam Const: COMMON NORMALS: no acute distress, average body habitus, patient oriented x3, no limitations, healthy appearing, alert and well nourished GE NERAL APPEARANCE: cooperative, comfortable, well kempt and well developed ORIENTATION/CONSCIOUSNESS: Yes awake, Yes oriented to person, Yes oriented to place and Yes oriented to time Resp: COMMON NORMALS: normal respiratory effort EFFORT & INSPECTION: Yes able to speak in complete sentences GI: COMMON NORMALS: Soft to palpation and non-tender PALPATION: Yes Soft to palpation Extremity: COMMON NORMALS: no calf tenderness Neuro: COMMON NORMALS: patient oriented x3 SENSORIUM/ORIENTATION: Yes alert, Yes oriented to person, Yes oriented to place and Yes oriented to time Psych: COMMON NORMALS: mental status grossly normal, Normal thought process present, cooperative, normal affect and speech normal APPEARANCE: Yes grossly normal and Yes well kempt ATTITUDE: Yes calm and Yes engaged SPEECH: Yes normal speech THOUGHT PROCESS: Normal thought process present Urinary Catheter Management: Karimi Latex: Cath Placed During This Visit: yes, but has since been removed by the nurse Reason for Continuing Indwelling Catheter: Decision to DC Catheter Urinary Catheter Date of Insertion: 01/15/22 Urinary Catheter Time of Insertion: 08:30 Date Urinary Catheter Removed: 01/15/22 Time Urinary Catheter Discontinued: 08:41 Discharge Data Studies Completed and Pending Pending at discharge Category Date Time Status Leukocyte Reduced RBC Routine Lab 01/15/22 19:41 Results Type and Screen Routine Lab 01/14/22 19:40 Results Laboratory Results WBC 14.0 10^3/uL (4.0-10.0) H 01/16/22 04:00 RBC 3.45 10^6/uL (4.1-5.3) L 01/16/22 04:00 Hgb 9.2 g/dL (11.5-15.3) L 01/16/22 04:00 Hct 28.0 % (37.0-47.0) L 01/16/22 04:00 MCV 81.2 fl (81-99) 01/16/22 04:00 MCH 26.7 pg (28.0-34.0) L 01/16/22 04:00 MCHC 32.9 g/dL (30.0-36.0) 01/16/22 04:00 RDW 15.9 % (12.1-15.1) H 01/16/22 04:00 Plt Count 224 10^3/cmm (130-400) 01/16/22 04:00 MPV 9.3 fL (7.4-10.4) 01/16/22 04:00 Neut % (Auto) 78.3 % 01/16/22 04:00 Lymph % (Auto) 14.3 % 01/16/22 04:00 [place] % (Auto) 6.6 % 01/16/22 04:00 Eos % (Auto) 0.2 % 01/16/22 04:00 Baso % (Auto) 0.1 % 01/16/22 04:00 Neut # (Auto) 10.98 10^3/uL (1.8-7.7) H 01/16/22 04:00 Lymph # (Auto) 2.0 10^3/uL (0.8-4.8) 01/16/22 04:00 [place] # (Auto) 0.9 10^3/uL (0.2-0.9) 01/16/22 04:00 Eos # (Auto) 0.0 10^3/uL (0.0-0.8) 01/16/22 04:00 Baso # (Auto) 0.0 10^3/uL (0.0-0.1) 01/16/22 04:00 Nucleated RBC % (auto) 0 % 01/16/22 04:00 Nucleated RBCs # 0.0 /100WBC 01/16/22 04:00 Blood Type A Positive 01/14/22 19:40 Blood Type Cancelled 01/14/22 19:40 Rho(D) Type Cancelled 01/14/22 19:40 Rho(D) Type Positive 01/14/22 19:40 Antibody Screen Cancelled 01/14/22 19:40 Antibody Screen Negative 01/14/22 19:40 Crossmatch See Detail 01/14/22 19:40 Vitals Last Vital Signs Temp 97.7 F 01/16/22 06:00 Pulse 81 01/16/22 07:50 Resp 18 01/15/22 19:54 BP 132/68 01/16/22 07:50 Pulse Ox 100 01/15/22 21:19 Discharge Plan Discharge Patient Disposition: Home Condition: Stable Prescriptions: Continued aspirin [Adult Low Dose Aspirin] 81 mg tablet,delayed release (DR/EC) 81 mg PO DAILY 0RF ferrous sulfate 325 mg (65 mg iron) tablet,delayed release (DR/EC) 325 mg PO DAILY 0RF Discharge Orders: Discharge Order (Routine); Ordered 01/16/22 Ordered By: Fior Alfonso Patient Instructions: Opioid Safety Discharge Attestations Time Spent in Discharge Care*: less than 30 min Quality Metrics Clinical Quality Measures [ No reported AMI, CVA or VTE this stay] Coding Level of Care Code Acute Chg FW DC note
== END 2022-01-16 13:21 | disposition home or self-care (01) | DRG 807 ==
PROVIDERS: Admitting Provider Obstetrics & Gynecology; Family Provider Internal Medicine; PCP Internal Medicine; Visit Provider Obstetrics & Gynecology
DX: O70.1 Second degree perineal laceration during delivery (principal); Z37.0 Single live birth; Z3A.39 39 weeks gestation of pregnancy
CPT/HCPCS: 36415; 59025; 59409; 85025; 86850; 86900; 86920; 96372; 99211; G0378; J2405; J2795; J3010

== ENCOUNTER → 2022-03-10 08:40 | Outpatient (BNVA) | payer OTHER, SELFPAY | PROVIDERS: Family Provider Internal Medicine; PCP Internal Medicine; Visit Provider Obstetrics & Gynecology | DX: Z30.9 Encounter for contraceptive management, unspecified (principal); L30.9 Dermatitis, unspecified; R10.2 Pelvic and perineal pain | CPT/HCPCS: 81025 ==